=== PATIENT | female | born 1955 ===

== ENCOUNTER → 2016-12-29 | Outpatient (CLI) | payer OTHER ==
[~2016-12-29] MED LIST: ALBUTEROL SULFATE 0.083% NEB 2.5 MG/3 ML AMPUL NEB ONE
--- NOTE | 2017-01-01 17:41 | Pulmonary Function Test ---
Pulmonary Function Test Date of Procedure:: 01/01/17 INDICATION:: Cough, smoking Referring Provider: Dr. 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 Impression: Mild obstructive ventilatory defect with insignificant response to bronchodilator therapy. This does not preclude a clinical trial of bronchodilator therapy.A mild decrease in diffusion capacity is noted..
== END ==
LOC: RT 09:53
PROVIDERS: ATTEND Family Medicine
DX: R91.1 Solitary pulmonary nodule (principal); M06.9 Rheumatoid arthritis, unspecified; M35.00 Sjogren syndrome, unspecified
CPT/HCPCS: 94060; 94729

== ENCOUNTER → 2018-02-11 | Outpatient (CLI) | payer OTHER ==
--- NOTE | 2018-02-12 07:57 | RADIOLOGY REPORT (SQ) ---
EXAM DESCRIPTION: MRI LUMBAR SPINE WITHOUT COMPLETED DATE/TIME: 02/11/2018 7:11 pm REASON FOR STUDY: M54.16 LUMBAR RADICULAR PAIN R29.898 LEG WEAKNESS M54.5 LOW BACK PAIN M54.16 RADI CULOPATHY, LUMBAR REGION R29.898 OTH SYMPTOMS AND SIGNS INVOLVING THE MUSCULOSKELETAL M54.5 LOW SHREYAS K PAIN COMPARISON: None. TECHNIQUE: Sagittal and Axial imaging includes T1, T2, STIR and gradient echo sequences. Coronal T2/ HASTE imaging. LIMITATIONS: None. FINDINGS: VISUALIZED UPPER ABDOMEN: Limited evaluation. No acute or suspicious findings suggested. SEGMENTATION: No transitional anatomy. The lowest well-developed disc space is labeled L5-S1. ALIGNMENT: Anatomic. VERTEBRAE: Intact. BONE MARROW: Edematous reactive vertebral body endplate change at L4-5 DISC SIGNAL: Diffuse decreased T2 weighted intervertebral disc signal. Disc space loss height at L4- 5 POSTERIOR ELEMENTS: Generally intact. No pars defect evident. HARDWARE: None in the spine. CORD AND CONUS: Normal in size and signal intensity. Conus at the L1 level. SOFT TISSUES: No aortic aneurysm seen. No bulky retroperitoneal adenopathy or mass. No paraspinal mas s or fluid. T10-11: Mild bilateral facet hypertrophy. No central or foraminal narrowing. T11-12: Mild bilateral facet hypertrophy. No central or foraminal narrowing. T12-L1: Unremarkable L1-L2: Mild bilateral facet hypertrophy. No central or foraminal narrowing. L2-L3: Mild diffuse posterior disc bulge and mild bilateral facet and ligament hypertrophy are presen t. Borderline central canal narrowing with mild bilateral inferior foraminal narrowing. No exiting L2 nerve root impingement L3-L4: Mild diffuse posterior disc bulge and bony spurring, moderate bilateral facet and ligament hyp ertrophy are present. Borderline central canal narrowing. Mild bilateral inferior foraminal narrowi ng without exiting L3 nerve root impingement. L4-L5: High-grade central canal stenosis at L4-5 results from a large disc herniation with extruded m aterial extending inferiorly along the dorsal aspect of the L5 vertebral body. This is best shown on axial is T2 image 20-23, and sagittal T2 image 9. There is flattening of the thecal sac at the take off of the bilateral L5 nerve roots in the lateral recess, left greater than right. Elsewhere at L4-5, there is mild right and moderate left foraminal narrowing without definite exiting L4 nerve root impingement. L5-S1: Broad diffuse posterior disc bulge right greater than left flattens the thecal sac at the take off of the right S1 nerve root in the lateral recess best shown on axial T2 image 26. Mild central c anal narrowing at L5-S1 from disc bulge and bulky facet and ligament hypertrophy. High-grade bilater al foraminal narrowing is present with effacement of the fat around the exiting L5 nerve roots bilate rally. SACRUM: Visualized upper sacrum intact. OTHER: No other significant findings. IMPRESSION: Significant central and foraminal stenosis at L4-5. Significant bilateral foraminal narrowing at L5-S1 TECHNICAL DOCUMENTATION: JOB ID: [id number] [employer]- All Rights Reserved Reading location - IP/workstation name: [email or web address]
== END ==
LOC: RAD 20:12
PROVIDERS: ATTEND Internal Medicine
DX: M54.16 Radiculopathy, lumbar region (principal); R29.898 Other symptoms and signs involving the musculoskeletal system; M54.5 Low back pain
CPT/HCPCS: 72148

== ENCOUNTER 2018-03-30 16:28 | Emergency (ER) | payer OTHER ==
--- NOTE | 2018-03-30 16:57 | ER Document Report ---
ED General - General Chief Complaint: Back Pain Stated Complaint: LOWER BACK PAIN Time Seen by Provider: 03/30/18 16:53 Primary Care Provider: FREYA GAXIOLA MD [Primary Care Provider] - Follow up as needed TRAVEL OUTSIDE OF THE [place] IN LAST 30 DAYS: No - HPI Patient complains to provider of: back pain Onset: Other - 63-year-old female who presents for evaluation of low back pain. She is been evaluated for this multiple times to try and help with this in the past and is currently awaiting treatment at pain management for her chronic back pain. Nothing is made it better or worse. - Related Data Allergies/Adverse Reactions: erythromycin base Allergy (Verified 03/30/18 16:37) latex Allergy (Verified 03/30/18 16:37) nitrofurantoin [From Macrobid] Allergy (Verified 03/30/18 16:37) Past Medical History - General Information source: Patient, Relative - Social History Smoking Status: Current Every Day Smoker Chew tobacco use (# tins/day): No Frequency of alcohol use: None Drug Abuse: None Family History: None Patient has suicidal ideation: No Patient has homicidal ideation: No Renal/ Medical History: Denies: Hx Peritoneal Dialysis Review of Systems - Review of Systems -: Yes All other systems reviewed and negative Physical Exam - Vital signs Vitals: Temp Pulse Resp BP Pulse Ox 97.9 F 71 18 135/57 H 100 03/30/18 16:33 03/30/18 16:33 03/30/18 16:33 03/30/18 16:33 03/30/18 16:33 - General General appearance: Appears well, Alert - HEENT Head: Normocephalic, Atraumatic Eyes: Normal Pupils: PERRL - Respiratory Respiratory status: No respiratory distress Chest status: Nontender Breath sounds: Normal Chest palpation: Normal - Cardiovascular Rhythm: Regular Heart sounds: Normal auscultation Murmur: No - Abdominal Inspection: Normal Distension: No distension Bowel sounds: Normal Tenderness: Nontender Organomegaly: No organomegaly - Back Back: Tender - tenderness along the paraspoinal muscles more prominent on the tright - Extremities General upper extremity: Normal inspection, Nontender, Normal color, Normal ROM, Normal temperature General lower extremity: Normal inspection, Nontender, Normal color, Normal ROM, Normal temperature, Normal weight bearing. No: Ranjith's sign - Neurological Neuro grossly intact: Yes Cognition: Normal Orientation: AAOx4 [place] Coma Scale Eye Opening: Spontaneous Rachid Coma Scale Verbal: Oriented [place] Coma Scale Motor: Obeys Commands [place] Coma Scale Total: 15 Speech: Normal Motor strength normal: LUE, RUE, LLE, RLE Sensory: Normal - Psychological Associated symptoms: Normal affect, Normal mood Course - Re-evaluation Re-evalutation: 63-year-old female with chronic back pain is awaiting placement with pain management. Currently she does not have any new neurologic symptoms but is having such bad radicular pain along the right side she is unable to rest. She is using hydrocodone to help is not making it better. We will aggressively control pain in the emergency department. We will plan for administration of morphine. Patient with improvement of symptoms continue has some symptoms administered fentanyl thereafter. Readminister morphine and then give a dose of oral morphine. She was able to ambulate with some assistance emergency department had difficulty with moving her bowels due to pain in the back but was definitely able to improve her symptoms. We also administered steroids that she does have a history of Sjogren's. Current plan is for this patient undergo discharge with a prescription for gabapentin, prednisone, morphine sulfate, and a bowel regimen. - Vital Signs Vital signs: Temp Pulse Resp BP Pulse Ox 98.1 F 79 15 144/67 H 94 03/30/18 22:00 03/30/18 18:56 03/30/18 18:56 03/30/18 22:02 03/30/18 22:02 - Laboratory Result Diagrams: 03/30/18 17:51 03/30/18 17:51 Laboratory results interpreted by me: 03/30/18 17:51 RDW 14.1 H Discharge - Discharge Clinical Impression: Back pain Qualifiers: Back pain location: back pain in unspecified location Chronicity: unspecified Back pain laterality: unspecified Qualified Code(s): M54.9 - Dorsalgia, unspecified Sciatica Qualifiers: Laterality: unspecified laterality Qualified Code(s): M54.30 - Sciatica, unspecified side Constipation Qualifiers: Constipation type: unspecified constipation type Qualified Code(s): K59.00 - Constipation, unspecified Condition: Good Disposition: HOME, SELF-CARE Instructions: Low Back Pain ([facility]), Oral Narcotic Medication ([facility]) Additional Instructions: You were seen today in the emergency department for your acute on chronic pain. You had blood work as well as a physical exam. You been given a prescription for medications to help with this pain however it is imperative that you find a physician to follow-up with in regards to your pain this week. Prescriptions: Gabapentin [Neurontin 300 mg Capsule] 300 mg PO Q12 #60 capsule Morphine Sulfate [Morphine Ir 15 Mg Tablet] 15 mg PO BID 4 Days #12 tablet Polyethylene Glycol 3350 [Miralax Powder 17 gm/Packet] 1 packet PO DAILY #1 pkg Prednisone [Deltasone 10 mg Tablet] See Protocol PO DAILY 16 Days #20 tablet Referrals: FREYA GAXIOLA MD [Primary Care Provider] - Follow up as needed
[2018-03-30] MEDS ORDERED: METHYLPREDNISOLONE INJ 125 MG/2 ML SDV IV ONE (17:11)
[2018-03-30] MEDS ORDERED: FENTANYL CITRATE INJ/PF 100 MCG/2 ML AMPUL IV ONE (17:11)
[2018-03-30] MEDS ORDERED: NORMAL SALINE 1000 ML 1,000 ML IV ONE (17:11)
[2018-03-30 18:13] LABS: ABSOLUTE BASOPHILS # (AUTO) 0.1 10^3/uL (0.0-0.2); ABSOLUTE LYMPHOCYTES (AUTO) 1.6 10^3/uL (0.5-4.7); ABSOLUTE MONOCYTES (AUTO) 0.9 10^3/uL (0.1-1.4); ABSOLUTE NEUT (AUTO) 6.6 10^3/uL (1.7-8.2); BASOPHILS % (AUTO) 0.9 % (0-2); EOSINOPHILS % (AUTO) 0.2 % (0-6); HEMATOCRIT 40.1 % (36.0-47.0); HEMOGLOBIN 13.5 g/dL (12.0-15.5); LYMPHOCYTES % (AUTO) 17.2 % (13-45); MEAN CORPUSCULAR HEMOGLOBIN 31.2 pg (27.0-33.4); MEAN CORPUSCULAR HGB CONC 33.6 g/dL (32.0-36.0); MEAN CORPUSCULAR VOLUME 93 fl (80-97); PLATELET COUNT 304 10^3/uL (150-450); RED BLOOD COUNT 4.32 10^6/uL (3.72-5.28); RED CELL DISTRIBUTION WIDTH 14.1 % (11.5-14.0); SEGMENTED NEUTROPHILS % (AUTO) 71.7 % (42-78); TOTAL CELLS COUNTED % (AUTO) 100 %; WHITE BLOOD COUNT 9.1 10^3/uL (4.0-10.5)
[2018-03-30 18:23] LABS: ALANINE AMINOTRANSFERASE 26 U/L (9-52); ALBUMIN 4.3 g/dL (3.5-5.0); ALKALINE PHOSPHATASE 61 U/L (38-126); ANION GAP 9 (5-19); ASPARTATE AMINO TRANSFERASE 29 U/L (14-36); BILIRUBIN,DIRECT 0.3 mg/dL (0.0-0.4); BILIRUBIN,TOTAL 0.4 mg/dL (0.2-1.3); BLOOD UREA NITROGEN 18 mg/dL (7-20); CALCIUM 9.5 mg/dL (8.4-10.2); CARBON DIOXIDE 25 mmol/L (22-30); CHLORIDE 105 mmol/L (98-107); GLUCOSE 84 mg/dL (75-110); POTASSIUM 4.5 mmol/L (3.6-5.0); SODIUM 138.7 mmol/L (137-145); TOTAL PROTEIN 6.8 g/dL (6.3-8.2)
[2018-03-30] MEDS ORDERED: MORPHINE SULFATE 10 MG/ML INJ IV ONE ×2 (18:45→21:43)
[2018-03-30] MEDS ORDERED: MORPHINE SULFATE IR 15 MG TABLET PO ONE (21:40)
[2018-03-30] MEDS ORDERED: LIDOCAINE 5% (700 MG) TRANSDERMAL ADH..PATCH TP ONE (21:43)
[2018-03-30 23:02] VITALS: BP 140/69
== END 2018-03-30 23:10 | disposition home or self-care (01) ==
LOC: ER 16:28
DX: M54.30 Sciatica, unspecified side (principal); M54.5 Low back pain; K59.00 Constipation, unspecified; G89.29 Other chronic pain; F17.200 Nicotine dependence, unspecified, uncomplicated
CPT/HCPCS: 99284; 36415; 85025; 80053; J3010; J2930; J2270; J7030

== ENCOUNTER → 2018-07-23 | Outpatient (CLI) | payer OTHER ==
--- NOTE | 2018-07-23 15:42 | RADIOLOGY REPORT (SQ) ---
EXAM DESCRIPTION: CT HEAD WITHOUT COMPLETED DATE/TIME: 07/23/2018 3:31 pm REASON FOR STUDY: W19.XXXA UNSPECIFIED FALL, INITIAL ENCOUNTER W19.XXXA UNSPECIFIED FALL, INITIAL E NCOUNTER M54.2 CERVICALGIA COMPARISON: None. TECHNIQUE: Axial images acquired through the brain without intravenous contrast. Images reviewed wi th bone, brain and subdural windows. Additional sagittal and coronal reconstructions were generated. Images stored on PACS. All CT scanners at this facility use dose modulation, iterative reconstruction, and/or weight based d osing when appropriate to reduce radiation dose to as low as reasonably achievable (ALARA). [facility]: Dose Right [facility]: CareDose [facility]: Dose Right [facility]: Teradose 4D [facility]: [employer] RADIATION DOSE: CT Rad equipment meets quality standard of care and radiation dose reduction techniq ues were employed. CTDIvol: 48.6 mGy. DLP: 930 mGy-cm. mGy. LIMITATIONS: None. FINDINGS: VENTRICLES: Normal size and contour. CEREBRUM: No masses. No hemorrhage. No midline shift. No evidence for acute infarction. Normal gra y/white matter differentiation. No areas of low density in the white matter. CEREBELLUM: No masses. No hemorrhage. No alteration of density. No evidence for acute infarction. EXTRAAXIAL SPACES: No fluid collections. No masses. ORBITS AND GLOBE: No intra- or extraconal masses. Normal contour of globe without masses. CALVARIUM: No fracture. PARANASAL SINUSES: No fluid or mucosal thickening. SOFT TISSUES: No mass or hematoma. OTHER: No other significant finding. IMPRESSION: NORMAL BRAIN CT WITHOUT CONTRAST. EVIDENCE OF ACUTE STROKE: NO. COMMENT: Quality ID # [id number]: Final reports with documentation of one or more dose reduction techniques (e.g., Automated exposure control, adjustment of the mA and/or kV according to patient size, use of iterative reconstruction technique) TECHNICAL DOCUMENTATION: JOB ID: [id number] [employer]- All Rights Reserved Reading location - IP/workstation name: [email or web address]
--- NOTE | 2018-07-23 15:43 | RADIOLOGY REPORT (SQ) ---
EXAM DESCRIPTION: CT CERVICAL SPINE WITHOUT COMPLETED DATE/TIME: 07/23/2018 3:31 pm REASON FOR STUDY: W19.XXXA UNSPECIFIED FALL, INITIAL ENCOUNTER W19.XXXA UNSPECIFIED FALL, INITIAL E NCOUNTER M54.2 CERVICALGIA COMPARISON: None. TECHNIQUE: Axial images acquired through the cervical spine without intravenous contrast. Images re viewed with lung, soft tissue and bone windows. Reconstructed coronal and sagittal MPR images review ed. Images stored on PACS. All CT scanners at this facility use dose modulation, iterative reconstruction, and/or weight based d osing when appropriate to reduce radiation dose to as low as reasonably achievable (ALARA). [facility]: Dose Right [facility]: CareDose [facility]: Dose Right [facility]: Teradose 4D [facility]: [employer] RADIATION DOSE: CT Rad equipment meets quality standard of care and radiation dose reduction techniq ues were employed. CTDIvol: 13.8 mGy. DLP: 323 mGy-cm. mGy. LIMITATIONS: None. FINDINGS: ALIGNMENT: Reversal of the cervical curvature. MINERALIZATION: Normal. VERTEBRAL BODIES: No fractures or dislocation. DISCS: Marked disc space narrowing with extensive sclerosis and osteophytes at C4-C5 and C5-C6 and le ss severe changes at C6-C7. FACETS, LATERAL MASSES, POSTERIOR ELEMENTS: No fractures. No dislocation. No acute findings. HARDWARE: None in the spine. VISUALIZED RIBS: No fractures. LUNG APICES AND SOFT TISSUES: No significant or acute findings. OTHER: No other significant finding. IMPRESSION: CHRONIC DEGENERATIVE CHANGES. NO ACUTE FINDINGS IN THE CERVICAL SPINE. TECHNICAL DOCUMENTATION: JOB ID: [id number] Quality ID # [id number]: Final reports with documentation of one or more dose reduction techniques (e.g., Au tomated exposure control, adjustment of the mA and/or kV according to patient size, use of iterative reconstruction technique) 2010 [employer]- All Rights Reserved Reading location - IP/workstation name: [email or web address]
== END ==
LOC: RAD 14:57
PROVIDERS: ATTEND Internal Medicine
DX: S00.03XA Contusion of scalp, initial encounter (principal); M54.2 Cervicalgia; M48.02 Spinal stenosis, cervical region; W19.XXXA Unspecified fall, initial encounter
CPT/HCPCS: 70450; 72125